=== PATIENT | female | born 1985 | race Caucasian/White ===

== ENCOUNTER → 2019-08-26 14:29 | Outpatient (CLI) | payer MEDICAID, SELFPAY ==
[2019-08-26 16:03] LABS: hCG Titer Quant., Serum 2 mIU/mL (1-3)
== END ==
PROVIDERS: Referring Provider Advanced Practice Midwife; Visit Provider Advanced Practice Midwife
DX: N92.6 Irregular menstruation, unspecified (principal)
CPT/HCPCS: 36415; 84702